=== PATIENT | male | born 1960 | race African-American/Black ===

== ENCOUNTER 2016-10-13 18:05 | Emergency (ER) | payer SELFPAY ==
[~2016-10-13] VITALS: Ht 185.4 cm; Wt 105.0 kg
[2016-10-13] MEDS ORDERED: KETOROLAC 60MG/2ML VIAL IM ONE (21:00)
[2016-10-13] MEDS ORDERED: BACITRACIN ZINC OINT UDPKT TOP ONE (21:00)
[2016-10-13] MEDS ORDERED: LIDOCAINE HCL 1% 20ML VIAL (Pyxis) INJ MC ONE (21:00)
[2016-10-13 23:56] VITALS: BP 102/78
== END 2016-10-13 23:58 | disposition home or self-care (01) ==
LOC: ER 18:46
DX: S01.81XA Laceration without foreign body of other part of head, initial encounter (principal); F10.129 Alcohol abuse with intoxication, unspecified; Y90.9 Presence of alcohol in blood, level not specified; X58.XXXA Exposure to other specified factors, initial encounter; Y93.89 Activity, other specified; Y99.8 Other external cause status; Y92.89 Other specified places as the place of occurrence of the external cause
CPT/HCPCS: 12013; 70460; 96372; 99284; J1885; J3490; X7700; Z7610

== ENCOUNTER 2016-10-20 13:00 | Emergency (ER) | payer SELFPAY ==
[~2016-10-20] VITALS: Ht 177.8 cm; Wt 83.0 kg
[2016-10-20 13:24] VITALS: BP 146/84
== END 2016-10-20 18:08 | disposition home or self-care (01) ==
LOC: ER 13:29
DX: S01.81XD Laceration without foreign body of other part of head, subsequent encounter (principal); X58.XXXD Exposure to other specified factors, subsequent encounter; Y93.89 Activity, other specified; Y92.9 Unspecified place or not applicable; Y99.8 Other external cause status
CPT/HCPCS: 99281

== ENCOUNTER 2021-08-11 17:04 | Emergency (ER) | payer OTHER ==
[~2021-08-11] VITALS: Ht 182.9 cm; Wt 82.0 kg
[2021-08-11] MEDS ORDERED: ASPIRIN 325MG EC TABLET PO ONE (17:45)
[2021-08-11 18:37] LABS: EOSINOPHILS % 7.3 % (0.0-5.0); HEMATOCRIT. 29.2 % (42.0-52.0); LYMPHOCYTES % 21.5 % (20.0-50.0); MEAN CORPUSCULAR HEMOGLOBIN 21.9 pg (28.0-32.0); MEAN CORPUSCULAR VOLUME 71.2 fL (80.0-94.0); MEAN PLATELET VOLUME 7.9 fl (7.4-10.4); MONOCYTES % 13.3 % (2.0-8.0); NEUTROPHILS % 56.9 % (40.0-76.0); PLATELET 331 x1000/uL (130-400); RED CELL DISTRIBUTION WIDTH 19.3 % (11.6-14.6)
[2021-08-11 18:51] LABS: CHLORIDE 112 mEq/L (98-107)
[2021-08-11 19:15] LABS: ETHANOL BLOOD 318 mg/dL
[2021-08-11 19:17] VITALS: BP 125/85
== END 2021-08-11 19:17 ==
LOC: ER 17:04
DX: R07.89 Other chest pain (principal); D64.9 Anemia, unspecified; K51.90 Ulcerative colitis, unspecified, without complications; I10 Essential (primary) hypertension
CPT/HCPCS: 36415; 71045; 80053; 80320; 83880; 84484; 85025; 93005; 99285; G0480